=== PATIENT | female | born 1955 | race Caucasian/White ===

== ENCOUNTER 2021-10-21 15:07 | Emergency (ER) | payer SELFPAY ==
[~2021-10-21] VITALS: Ht 167 cm; Wt 70.0 kg
--- NOTE | 2021-10-21 15:19 | ED General ---
General Chief Complaint: Facial Problems Stated Complaint: STROKE SYMPTOMS,COUGH Source of Information: Patient History of Present Illness Date Seen by Provider: Oct 21, 2021 Time Seen by Provider: 15:08 Initial Comments 66-year-old female presenting with complaints of right facial droop since this morning. She states that after she got up she had made coffee and went to drink it but the coffee was pouring out the side of her mouth. She was not having a headache or any change in her vision. She has been dealing with ear pain on the right side as well as throat pain with some white spots in her throat. These symptoms started on Monday for her. The facial droop started today. She was concerned that she was having a stroke or something more was going on. She denies any numbness or weakness in her arms or legs. She has had no difficulty with her speech. She has painful swallowing due to the sores in her throat but is able to swallow otherwise without difficulty. She has been taking prednisone 40 mg a day for 3-day burst and has 1 more day of that. She also is on Phenergan with codeine for cough and Augmentin for ear infection. Timing/Duration: 4-6 Hours (4 to 6 hours of right-sided facial droop but 5 days of ear pain and throat pain.) Severity: Severe Associated Systoms: No Chest Pain; Cough; No Diaphoresis, No Fever/Chills; Headaches (Right-sided where she has the ear pain); No Loss of Appetite; Malaise; No Nausea/Vomiting, No Rash, No Seizure, No Shortness of Air, No Syncope, No Weakness Allergies and Home Medications Allergies Coded Allergies: No Known Drug Allergies (Unverified , 10/21/21) Patient Home Medication List Home Medication List Reviewed: Yes Prednisone (Prednisone) 20 Mg Tab, 60 MG PO DAILY Prescribed by: TRISTA DIANA on 10/21/21 162 Valacyclovir HCl (Valacyclovir) 1,000 Mg Tablet, 1,000 MG PO TID Prescribed by: TRISTA DIANA on 10/21/211624 Review of Systems Review of Systems Constitutional: No chills; dizziness (Reports that she feels like her eq uilibrium is off when she is walking. This has been since Monday); No fever EENTM: hearing loss (Decreased hearing from the right ear since Monday), ear pain (Right ear since Monday), throat pain; No ear discharge, No blurred vision, No double vision, No eye pain, No tearing, No vision loss, No mouth pain, No epistaxis, No nose congestion Respiratory: cough; No hemoptysis, No phlegm, No short of breath Cardiovascular: No chest pain Gastrointestinal: No nausea, No vomiting Genitourinary: No dysuria Musculoskeletal: no symptoms reported Skin: No rash Psychiatric/Neurological: See HPI Hematologic/Lymphatic: Denies Blood Clots, Denies Easy Bleeding, Denies Easy Bruising Past Modvsld-Sbfyih-Ihurha Hx Patient Social History Tobacco Use?: Yes Tobacco type used: Cigarettes Smoking Status: Current Everyday Smoker Use of E-Cig and/or Vaping dev: No Substance use?: No Alcohol Use?: No Pt feels they are or have been: No Physical Exam Vital Signs Vital Signs - First Documented 10/21/21 15:07 Temp 36.9 Pulse 76 Resp 18 B/P (MAP) 164/86 (112) Pulse Ox 94 O2 Delivery Room Air Capillary Refill : Height, Weight, BMI Height: '" Weight: lbs. oz. kg; BMI Method: General Appearance: Anxious HEENT: PERRL/EOMI, Pharyngeal Erythema; No Photophobia; TM Abnormal (R) (Right TM is erythematous with dullness and effusion), Tonsillar Exudate (Right-sided) Neck: Full Range of Motion, Normal Inspection, Non Tender, Supple Respiratory: Chest Non Tender, Lungs Clear, Normal Breath Sounds, No Accessory Muscle Use, No Respiratory Distress Cardiovascular: Regular Rate, Rhythm, Normal Peripheral Pulses Gastrointestinal: Normal Bowel Sounds, No Pulsatile Mass, Non Tender, Soft Extremity: Normal Capillary Refill, Normal Inspection, No Pedal Edema Neurologic/Psychiatric: Alert, Oriented x3, Facial Droop (Right facial palsy) Skin: Normal Color, Warm/Dry Progress/Results/Core Measures Suspected Sepsis SIRS Temperature: Pulse: Respiratory Rate: Blood Pressure / Mean: Results/Orders Vital Signs/I&O 10/21/21 10/21/21 15:07 16:28 Temp 36.9 36.9 Pulse 76 71 Resp 18 18 B/P (MAP) 164/86 (112) 148/72 Pulse Ox 94 97 O2 Delivery Room Air Room Air Capillary Refill : Progress Note : Progress Note Reassured patient that she had Hernandez's palsy. She had no other focal findings consistent with a stroke. Discussed performing CT scan and patient refused. Will order a 7-day course of prednisone 60 mg a day and valacyclovir 1000 mg 3 times daily to supplement the Augmentin she is taking. This was based off of review of the resources from up-to-date online medical reference. Counseled to follow-up with her PCP Gladis Navas. Stressed importance of keeping her eye hydrated and using artificial tears or artificial tear gel to help keep it from drying out especially overnight Departure Impression Primary Impression: Hernandez's palsy Additional Impressions: Right otitis media with effusion Pharyngitis Qualified Codes: J02.9 - Acute pharyngitis, unspecified Disposition: HOME, SELF-CARE Condition: Stable Departure-Patient Inst. Decision time for Depature: 16:19 Patient Instructions: Hernandez's Palsy (DC), Ear Infections (Otitis Media) in Adults (DC) Add. Discharge Instructions: Continue to stay well-hydrated and drink plenty of fluids. Finish out the amoxicillin/clavulanic acid that you have. Take a full 7 days of prednisone at 60 mg daily to help treat for Hernandez's palsy. For possible viral source of the Hernandez's palsy take the valacyclovir 1000 mg 3 times a day for 7 days. Follow-up through the clinic for continued symptoms and to follow-up for resolution of your symptoms. The Phenergan with codeine cough syrup could be taken as 10 mL or 2 teaspoons at bedtime as long as you do not go over the maximum dose of 30 mL or 6 teaspoons in 24 hours. All discharge instructions reviewed with patient and/or family. Voiced understanding. Scripts Valacyclovir HCl (Valacyclovir) 1,000 Mg Tablet 1000 MG PO TID for Hernandez Palsy for 7 Days, #21 TAB 0 Refills Prov: TRISTA DIANA MD 10/21/21 Prednisone (Prednisone) 20 Mg Tab 60 MG PO DAILY for Hernandez Palsy for 7 Days, #21 TAB 0 Refills Prov: TRISTA DIANA MD 10/21/21 TRISTA DIANA MD Oct 21, 2021 15:19
[2021-10-21] MEDS ORDERED: PRD20T PO (16:25)
[2021-10-21] MEDS ORDERED: VALA10007 PO (16:25)
[2021-10-21 16:28] VITALS: BP 148/72
== END 2021-10-21 16:28 | disposition home or self-care (01) ==
LOC: ER FS 15:09
DX: G51.0 Bell's palsy (principal); H65.91 Unspecified nonsuppurative otitis media, right ear; J02.9 Acute pharyngitis, unspecified; F17.210 Nicotine dependence, cigarettes, uncomplicated
CPT/HCPCS: 99283

== ENCOUNTER → 2022-01-21 | Outpatient (CLI) | payer OTHER ==
[~2022-01-21] MED LIST: GADOTERATE 0.5 MMOL/ML (CLARISCAN) 15 ML VIAL IV ONE; PRD20T PO; VALA10007 PO
--- NOTE | 2022-01-21 17:19 | Diagnostic Imaging Report ---
EXAM: MRI BRAIN AND IAC W/WO CONTRAST. INDICATION: Right seventh cranial nerve palsy. COMPARISON: None. FINDINGS: Dedicated sequences to the level of the internal auditory canals demonstrates abnormal enhancement of the right facial nerve from the distal intracanalicular segment through the visualized extracranial portion. No mass is identified. Normal appearance of the left internal auditory canal and facial nerve. Small nonspecific right mastoid effusion. [id number]-[id number] nonspecific T2 hyperintensities in the supratentorial white matter compatible with chronic small vessel ischemic change. No abnormal intracranial enhancement. No restricted water diffusion. No hemosiderin deposition or evidence of intracranial hemorrhage. Normal morphology of the major midline structures, sella, posterior fossa, and cerebellopontine angle. Normal intracranial flow voids. No hydrocephalus or extra-axial fluid collections. The orbits are negative. Paranasal sinuses are unremarkable. IMPRESSION: 1. Abnormal enhancement of the right facial nerve would be compatible with Hernandez's palsy. 2. Small nonspecific right mastoid effusion. 3. No acute intracranial MRI findings. No evidence of infarction or hemorrhage. Dictated by: Dictated on workstation # [id number]
== END ==
LOC: RAD 11:35
PROVIDERS: ATTEND Nurse Practitioner
DX: G51.0 Bell's palsy (principal); H74.8X3 Other specified disorders of middle ear and mastoid, bilateral
CPT/HCPCS: 70553